=== PATIENT | male | born 1950 | race African-American/Black ===

== ENCOUNTER 2021-02-22 04:32 | Inpatient (IN) ==
[~2021-02-22 04:32] MED LIST: ACETAMINOPHEN 500 MG TABLET PO ONE; FAMOTIDINE 20 MG TABLET PO ONE; GABAPENTIN 400 MG CAPSULE PO ONE; SODIUM CHLORIDE 0.9% 1,000 ML IV SCH
[2021-02-22] MEDS ORDERED: VANCOMYCIN INJ 1,000 MG in SODIUM CHLORIDE 0.9% 250 ML IV ONE ×2 (06:00→19:00)
[2021-02-22] MEDS ORDERED: propofoL 200 MG/20 ML VIAL IV ONE ×2 (07:10→08:44)
[2021-02-22] MEDS ORDERED: ROCURONIUM 50 MG/5 ML VIAL IV ONE ×2 (07:10→10:51)
[2021-02-22] MEDS ORDERED: SUCCINYLCHOLINE 200 MG/10 ML VIAL ONE (07:10)
[2021-02-22] MEDS ORDERED: KETAMINE 500 MG/10 ML VIAL ONE (07:10)
[2021-02-22] MEDS ORDERED: DEXMEDETOMIDINE 200 MCG/2 ML VIAL ONE ×12 (07:10→07:34)
[2021-02-22] MEDS ORDERED: LIDOCAINE 2% 5 ML VIAL ONE (07:10)
[2021-02-22] MEDS ORDERED: DEXAMETHASONE 4 MG/1 ML VIAL ONE ×2 (07:10)
[2021-02-22] MEDS ORDERED: ONDANSETRON 4 MG/2 ML VIAL ONE (07:10)
[2021-02-22] MEDS ORDERED: EPINEPHrine 1 MG/ML VIAL ONE (07:12)
[2021-02-22] MEDS ORDERED: BUPIVACAINE 0.5% 50 ML VIAL ONE (07:17)
[2021-02-22] MEDS ORDERED: FAMOTIDINE 20 MG TABLET ONE (07:38)
[2021-02-22] MEDS ORDERED: GABAPENTIN 400 MG CAPSULE ONE (07:38)
[2021-02-22] MEDS ORDERED: BACITRACIN OINT 0.9 GM PACK TOP ONE (07:48)
[2021-02-22] MEDS ORDERED: ACETAMINOPHEN 500 MG TABLET ONE (07:56)
[2021-02-22] MEDS ORDERED: MIDAZOLAM 2 MG/2 ML VIAL ONE (08:40)
[2021-02-22] MEDS ORDERED: LIDOCAINE 2% TOP JELLY 20 ML VIAL INTRAURETH ONE (09:15)
[2021-02-22] MEDS ORDERED: HALOPERIDOL 5 MG/ML AMP ONE (10:30)
[2021-02-22] MEDS ORDERED: SUGAMMADEX 200 MG/2 ML VIAL IV ONE (10:42)
[2021-02-22] MEDS ORDERED: SEVOFLURANE 1 UNIT/15 MINUTE INH ONE (10:51)
[2021-02-22] MEDS ORDERED: KETOROLAC 30 MG/1 ML VIAL ONE (10:51)
[2021-02-22] MEDS ORDERED: ALBUTEROL 2.5 MG/3 ML NEB RESP TX PRN (10:58)
[2021-02-22] MEDS ORDERED: MAGNESIUM HYDROXIDE SUSP 30 ML UDCUP PO PRN (11:00)
[2021-02-22] MEDS ORDERED: ONDANSETRON 4 MG/2 ML VIAL IV PRN ×2 (11:00→11:23)
[2021-02-22] MEDS ORDERED: PROMETHAZINE 25 MG/1 ML VIAL IM PRN (11:00)
[2021-02-22] MEDS ORDERED: MORPHINE 2 MG/1 ML SYRINGE IV PRN (11:00)
[2021-02-22] MEDS: LACTATED RINGERS 1,000 ML IV SCH ×2 (11:05→18:24)
[2021-02-22] MEDS ORDERED: SODIUM CHLORIDE 0.9% 1,000 ML IV ONE (11:05)
[2021-02-22] MEDS ORDERED: HYDROmorphone 2 MG/1 ML VIAL ONE (11:15)
[2021-02-22] MEDS: HYDROmorphone 2 MG/1 ML VIAL IV PRN ×4 (11:15→11:30)
[2021-02-22] MEDS ORDERED: diphenhydrAMINE 50 MG/1 ML VIAL IV PRN (11:23)
[2021-02-22] MEDS ORDERED: MEPERIDINE 25 MG/1 ML VIAL IV PRN (11:23)
[2021-02-22] MEDS ORDERED: PROMETHAZINE INJ 25 MG in SODIUM CHLORIDE 0.9% 50 ML IV PRN (11:23)
[2021-02-22 11:48] LABS: Bacteria,Urine Occasional /HPF (Few); Bilirubin,Urine Negative (Negative); Blood, Urine Moderate mg/dL (Negative); Glucose,Urine (UA) Negative (Negative); Ketones,Urine Negative (Negative); Mucus,Urine Occasional /LPF (Occasional); Nitrite,Urine Negative (Negative); Protein,Urine Negative; RBC,Urine 97 /HPF (0-4); Squamous Epithelial Cell,Urine Occasional /HPF (0-10); Urine Appearance CLEAR (Clear); Urine Color Straw (Yellow); Urine Specific Gravity 1.012 (1.001-1.035); Urine Urobilinogen < 2.0 EU/DL (0.2-1.0)
[2021-02-22] MEDS ORDERED: ALBUTEROL INHALER 18 GM INH ONE (12:55)
[2021-02-22] MEDS ORDERED: TUBERCULIN SKIN TEST 0.1 ML SYRINGE INTRADERM ONE (15:31)
[2021-02-22] MEDS: FUROSEMIDE 40 MG TABLET PO SCH (15:37)
[2021-02-22] MEDS: ALBUTEROL 2.5 MG/3 ML NEB RESP TX SCH ×3 (16:03→18:17)
[2021-02-22] MEDS: APIXABAN 2.5 MG TABLET PO SCH (20:40)
[2021-02-22] MEDS: traZODone 50 MG TABLET PO SCH (20:40)
[2021-02-22] MEDS: DOCUSATE SODIUM 100 MG CAPSULE PO SCH (20:40)
[2021-02-22] MEDS: MONTELUKAST 10 MG TABLET PO SCH (20:40)
[2021-02-23] MEDS: ALBUTEROL 2.5 MG/3 ML NEB RESP TX SCH ×7 (00:25→23:15)
[2021-02-23] MEDS: LACTATED RINGERS 1,000 ML IV SCH ×2 (04:25→05:45)
[2021-02-23 05:23] LABS: Basophils % 0.1 % (0.0-0.8); Eosinophils % 0.1 % (0.00-10.9); Hematocrit 27.2 VOL% (42.0-52.0); Hemoglobin 8.8 GM/DL (14.0-18.0); Immature Granulocytes % 0.5 %; Immature Granulocytes Absolute 0.06 #; Lymphocytes # 1.2 10*3/uL (1.4-4.0); Lymphocytes % 10.7 % (21.2-54.2); Mean Corpuscular HGB Conc 32.4 GM/DL (32-36); Mean Corpuscular Volume 95.4 FL (87-102); Mean Platelet Volume 8.7 FL (9.6-12.0); Monocytes % 11.6 % (1.7-12.7); Platelet Count 210 T/CUMM (130-400); Red Blood Count 2.85 MC/CUMM (3.8-5.5); Red Cell Distribution Width 15.9 % (9.3-17.3)
[2021-02-23 05:37] LABS: Calcium 8.1 MG/DL (8.5-10.1); Osmolality,Calculated 279.4 MOS/KG (273-304); Potassium 4.9 MMOL/L (3.5-5.1)
[2021-02-23] MEDS: FUROSEMIDE 40 MG TABLET PO SCH ×2 (09:06→18:07)
[2021-02-23] MEDS: MAGNESIUM OXIDE 400 MG TABLET PO SCH (09:06)
[2021-02-23] MEDS: TAMSULOSIN 0.4 MG CAPSULE PO SCH (09:06)
[2021-02-23] MEDS: ATORVASTATIN 20 MG TABLET PO SCH (09:06)
[2021-02-23] MEDS: FINASTERIDE 5 MG TABLET PO SCH (09:06)
[2021-02-23] MEDS: CHOLECALCIFEROL 5,000 UNIT TABLET PO SCH (09:06)
[2021-02-23] MEDS: CYANOCOBALAMIN 500 MCG TABLET PO SCH (09:06)
[2021-02-23] MEDS: DOCUSATE SODIUM 100 MG CAPSULE PO SCH ×2 (09:06→21:07)
[2021-02-23] MEDS: FERROUS SULFATE 325 MG TABLET PO SCH (09:06)
[2021-02-23] MEDS: PANTOPRAZOLE 40 MG TABLET PO SCH (09:06)
[2021-02-23] MEDS: APIXABAN 2.5 MG TABLET PO SCH ×2 (09:06→21:08)
[2021-02-23] MEDS: buPROPion SR 100 MG TABLET PO SCH (09:06)
[2021-02-23] MEDS: [UNRECOGNIZED DRUG - MIXTURE] INH SCH (10:00)
[2021-02-23] MEDS: MONTELUKAST 10 MG TABLET PO SCH (21:06)
[2021-02-23] MEDS: traZODone 50 MG TABLET PO SCH (21:08)
[2021-02-24] MEDS: MORPHINE 2 MG/1 ML SYRINGE IV PRN ×3 (01:26→13:25)
[2021-02-24] MEDS: ALBUTEROL 2.5 MG/3 ML NEB RESP TX SCH ×5 (03:25→19:38)
[2021-02-24 05:49] LABS: Basophils % 0.3 % (0.0-0.8); Eosinophils # 0.2 10*3/uL (0.0-0.87); Hematocrit 25.3 VOL% (42.0-52.0); Hemoglobin 8.3 GM/DL (14.0-18.0); Immature Granulocytes % 0.7 %; Immature Granulocytes Absolute 0.06 #; Lymphocytes # 1.5 10*3/uL (1.4-4.0); Mean Corpuscular HGB Conc 32.8 GM/DL (32-36); Mean Corpuscular Volume 94.8 FL (87-102); Mean Platelet Volume 8.9 FL (9.6-12.0); Monocytes % 14.7 % (1.7-12.7); Neutrophils % 65.3 % (38.7-73.9); Platelet Count 187 T/CUMM (130-400); Red Blood Count 2.67 MC/CUMM (3.8-5.5); Red Cell Distribution Width 16.2 % (9.3-17.3); White Blood Count 8.7 T/CUMM (4-12)
[2021-02-24] MEDS: CHOLECALCIFEROL 5,000 UNIT TABLET PO SCH (08:35)
[2021-02-24] MEDS: MAGNESIUM OXIDE 400 MG TABLET PO SCH (08:35)
[2021-02-24] MEDS: DOCUSATE SODIUM 100 MG CAPSULE PO SCH ×2 (08:35→20:45)
[2021-02-24] MEDS: TAMSULOSIN 0.4 MG CAPSULE PO SCH (08:35)
[2021-02-24] MEDS: ATORVASTATIN 20 MG TABLET PO SCH (08:35)
[2021-02-24] MEDS: FINASTERIDE 5 MG TABLET PO SCH (08:35)
[2021-02-24] MEDS: CYANOCOBALAMIN 500 MCG TABLET PO SCH (08:35)
[2021-02-24] MEDS: FUROSEMIDE 40 MG TABLET PO SCH ×2 (08:36→15:46)
[2021-02-24] MEDS: FERROUS SULFATE 325 MG TABLET PO SCH (08:36)
[2021-02-24] MEDS: buPROPion SR 100 MG TABLET PO SCH (08:36)
[2021-02-24] MEDS: PANTOPRAZOLE 40 MG TABLET PO SCH (08:36)
[2021-02-24] MEDS: APIXABAN 2.5 MG TABLET PO SCH ×2 (08:36→20:45)
[2021-02-24] MEDS: [UNRECOGNIZED DRUG - MIXTURE] INH SCH (09:35)
[2021-02-24] MEDS: MONTELUKAST 10 MG TABLET PO SCH (20:45)
[2021-02-24] MEDS: traZODone 50 MG TABLET PO SCH (20:45)
[2021-02-25] MEDS: ALBUTEROL 2.5 MG/3 ML NEB RESP TX SCH ×7 (01:46→23:43)
[2021-02-25 05:05] LABS: Basophils % 0.3 % (0.0-0.8); Eosinophils # 0.3 10*3/uL (0.0-0.87); Eosinophils % 2.7 % (0.00-10.9); Hematocrit 21.6 VOL% (42.0-52.0); Hemoglobin 7.2 GM/DL (14.0-18.0); Immature Granulocytes % 0.9 %; Immature Granulocytes Absolute 0.09 #; Lymphocytes # 1.5 10*3/uL (1.4-4.0); Lymphocytes % 14.6 % (21.2-54.2); Mean Corpuscular HGB Conc 33.3 GM/DL (32-36); Mean Corpuscular Volume 93.1 FL (87-102); Mean Platelet Volume 8.9 FL (9.6-12.0); Monocytes % 13.1 % (1.7-12.7); Neutrophils % 68.4 % (38.7-73.9); Platelet Count 177 T/CUMM (130-400); Red Blood Count 2.32 MC/CUMM (3.8-5.5); Red Cell Distribution Width 16.4 % (9.3-17.3); White Blood Count 10.2 T/CUMM (4-12)
[2021-02-25 05:34] LABS: Anisocytosis 2+; Band Neutrophils 2 % (0-10); Eosinophils 4 % (0-10); Lymphocytes 16 % (20-55); Macrocytosis 1+; Platelet Estimate Normal; Segmented Neutrophils 66 % (50-85); Smudge Cells Few; Total Cells Counted 100
[2021-02-25] MEDS ORDERED: SODIUM CHLORIDE 0.9% 1,000 ML IV PRN (07:00)
[2021-02-25] MEDS: FERROUS SULFATE 325 MG TABLET PO SCH (09:40)
[2021-02-25] MEDS: [UNRECOGNIZED DRUG - MIXTURE] INH SCH (09:40)
[2021-02-25] MEDS: APIXABAN 2.5 MG TABLET PO SCH ×2 (09:41→20:14)
[2021-02-25] MEDS: TAMSULOSIN 0.4 MG CAPSULE PO SCH (09:41)
[2021-02-25] MEDS: FUROSEMIDE 40 MG TABLET PO SCH ×2 (09:41→16:16)
[2021-02-25] MEDS: ATORVASTATIN 20 MG TABLET PO SCH (09:41)
[2021-02-25] MEDS: DOCUSATE SODIUM 100 MG CAPSULE PO SCH ×2 (09:41→20:14)
[2021-02-25] MEDS: MAGNESIUM OXIDE 400 MG TABLET PO SCH (09:41)
[2021-02-25] MEDS: FINASTERIDE 5 MG TABLET PO SCH (09:42)
[2021-02-25] MEDS: CYANOCOBALAMIN 500 MCG TABLET PO SCH (09:42)
[2021-02-25] MEDS: CHOLECALCIFEROL 5,000 UNIT TABLET PO SCH (09:42)
[2021-02-25] MEDS: PANTOPRAZOLE 40 MG TABLET PO SCH (09:42)
[2021-02-25] MEDS: buPROPion SR 100 MG TABLET PO SCH (09:43)
[2021-02-25] MEDS: MONTELUKAST 10 MG TABLET PO SCH (20:13)
[2021-02-25] MEDS: traZODone 50 MG TABLET PO SCH (20:13)
[2021-02-26] MEDS: ALBUTEROL 2.5 MG/3 ML NEB RESP TX SCH ×5 (03:00→19:25)
[2021-02-26 07:17] LABS: Basophils % 0.2 % (0.0-0.8); Eosinophils # 0.5 10*3/uL (0.0-0.87); Eosinophils % 4.4 % (0.00-10.9); Hematocrit 26.2 VOL% (42.0-52.0); Hemoglobin 8.6 GM/DL (14.0-18.0); Immature Granulocytes % 0.7 %; Immature Granulocytes Absolute 0.07 #; Lymphocytes # 1.4 10*3/uL (1.4-4.0); Mean Corpuscular HGB Conc 32.8 GM/DL (32-36); Mean Corpuscular Volume 91.6 FL (87-102); Mean Platelet Volume 8.8 FL (9.6-12.0); Monocytes % 14.2 % (1.7-12.7); Neutrophils % 66.5 % (38.7-73.9); Platelet Count 191 T/CUMM (130-400); Red Blood Count 2.86 MC/CUMM (3.8-5.5); Red Cell Distribution Width 16.8 % (9.3-17.3); White Blood Count 10.3 T/CUMM (4-12)
[2021-02-26] MEDS: FUROSEMIDE 40 MG TABLET PO SCH ×2 (08:56→16:46)
[2021-02-26] MEDS: DOCUSATE SODIUM 100 MG CAPSULE PO SCH ×2 (08:56→20:14)
[2021-02-26] MEDS: [UNRECOGNIZED DRUG - MIXTURE] INH SCH (08:56)
[2021-02-26] MEDS: FERROUS SULFATE 325 MG TABLET PO SCH (08:56)
[2021-02-26] MEDS: MAGNESIUM OXIDE 400 MG TABLET PO SCH (08:57)
[2021-02-26] MEDS: TAMSULOSIN 0.4 MG CAPSULE PO SCH (08:57)
[2021-02-26] MEDS: ATORVASTATIN 20 MG TABLET PO SCH (08:57)
[2021-02-26] MEDS: APIXABAN 2.5 MG TABLET PO SCH ×2 (08:57→20:14)
[2021-02-26] MEDS: CYANOCOBALAMIN 500 MCG TABLET PO SCH (08:58)
[2021-02-26] MEDS: PANTOPRAZOLE 40 MG TABLET PO SCH (08:58)
[2021-02-26] MEDS: FINASTERIDE 5 MG TABLET PO SCH (08:58)
[2021-02-26] MEDS: CHOLECALCIFEROL 5,000 UNIT TABLET PO SCH (08:58)
[2021-02-26] MEDS: buPROPion SR 100 MG TABLET PO SCH (08:59)
[2021-02-26] MEDS: MONTELUKAST 10 MG TABLET PO SCH (20:14)
[2021-02-26] MEDS: traZODone 50 MG TABLET PO SCH (20:14)
[2021-02-27] MEDS: ALBUTEROL 2.5 MG/3 ML NEB RESP TX SCH ×7 (00:26→23:05)
[2021-02-27] MEDS: FERROUS SULFATE 325 MG TABLET PO SCH (09:27)
[2021-02-27] MEDS: DOCUSATE SODIUM 100 MG CAPSULE PO SCH ×2 (09:28→20:23)
[2021-02-27] MEDS: APIXABAN 2.5 MG TABLET PO SCH ×2 (09:28→20:23)
[2021-02-27] MEDS: ATORVASTATIN 20 MG TABLET PO SCH (09:28)
[2021-02-27] MEDS: TAMSULOSIN 0.4 MG CAPSULE PO SCH (09:28)
[2021-02-27] MEDS: [UNRECOGNIZED DRUG - MIXTURE] INH SCH (09:28)
[2021-02-27] MEDS: FUROSEMIDE 40 MG TABLET PO SCH ×2 (09:28→15:59)
[2021-02-27] MEDS: MAGNESIUM OXIDE 400 MG TABLET PO SCH (09:28)
[2021-02-27] MEDS: buPROPion SR 100 MG TABLET PO SCH (09:29)
[2021-02-27] MEDS: CYANOCOBALAMIN 500 MCG TABLET PO SCH (09:29)
[2021-02-27] MEDS: FINASTERIDE 5 MG TABLET PO SCH (09:29)
[2021-02-27] MEDS: CHOLECALCIFEROL 5,000 UNIT TABLET PO SCH (09:29)
[2021-02-27] MEDS: PANTOPRAZOLE 40 MG TABLET PO SCH (09:29)
[2021-02-27] MEDS: MONTELUKAST 10 MG TABLET PO SCH (20:23)
[2021-02-27] MEDS: traZODone 50 MG TABLET PO SCH (20:23)
[2021-02-28] MEDS: ALBUTEROL 2.5 MG/3 ML NEB RESP TX SCH ×4 (02:15→14:00)
[2021-02-28] MEDS: ATORVASTATIN 20 MG TABLET PO SCH (08:52)
[2021-02-28] MEDS: DOCUSATE SODIUM 100 MG CAPSULE PO SCH (08:52)
[2021-02-28] MEDS: FERROUS SULFATE 325 MG TABLET PO SCH (08:52)
[2021-02-28] MEDS: APIXABAN 2.5 MG TABLET PO SCH (08:52)
[2021-02-28] MEDS: CYANOCOBALAMIN 500 MCG TABLET PO SCH (08:52)
[2021-02-28] MEDS: TAMSULOSIN 0.4 MG CAPSULE PO SCH (08:53)
[2021-02-28] MEDS: MAGNESIUM OXIDE 400 MG TABLET PO SCH (08:53)
[2021-02-28] MEDS: FUROSEMIDE 40 MG TABLET PO SCH (08:53)
[2021-02-28] MEDS: buPROPion SR 100 MG TABLET PO SCH (08:53)
[2021-02-28] MEDS: FINASTERIDE 5 MG TABLET PO SCH (08:53)
[2021-02-28] MEDS: CHOLECALCIFEROL 5,000 UNIT TABLET PO SCH (08:53)
[2021-02-28] MEDS: [UNRECOGNIZED DRUG - MIXTURE] INH SCH (08:54)
[2021-02-28] MEDS: PANTOPRAZOLE 40 MG TABLET PO SCH (08:57)
[2021-02-28 11:28] VITALS: BP 106/49
== END 2021-02-28 14:30 | disposition swing bed (61) | DRG 470 ==
LOC: N.OR 04:32 → N.SDSINP 04:33 → EDSTATUS 07:30 → N.SDSINP 11:00 → N.3E 12:03
PROVIDERS: ADMIT Orthopaedic Surgery; ATTEND Orthopaedic Surgery